=== PATIENT | female | born 1955 | race American Indian/Alaskan Native ===

== ENCOUNTER 2022-02-23 09:05 | Emergency (ER) | payer BC ==
[2022-02-23 09:34] VITALS: BP 131/105
--- NOTE | 2022-02-23 11:42 | Emergency Department Report ---
Minor Respiratory - HPI Chief Complaint: Sore Throat Stated Complaint: THROAT PAIN Time Seen by Provider: 02/23/22 11:19 Duration: 3 Days Pain Location: Throat Severity: mild Minor Respiratory: Yes Sore Throat, Yes Able to Tolerate Fluids, No Rhinorrhea, No Ear Pain, No Cough, No Sick Contacts, No Hemoptysis, No Chest Pain, No Shortness of Breath, No Fever Other History: 66 YO COMES TO ER WITH SORE THROAT AND SINUS PRESSURE. POS POST NASAL DRIP. NO FEVER. NO COUGH. NON TOXIC ON EXAM ED Review of Systems ROS: Stated complaint: THROAT PAIN Other details as noted in HPI Comment: All other systems reviewed and negative ED Past Medical Hx - Past Medical History Previous Medical History?: Yes Hx Asthma: Yes - Surgical History Past Surgical History?: Yes - Family History Family history: no significant - Social History Smoking Status: Never Smoker Substance Use Type: None - Medications Home Medications: Home Medications Medication Instructions Recorded Confirmed Last Taken Type Azithromycin [Zithromax Z-BLAKE] 250 mg PO DAILY #6 tablet 02/23/22 Unknown Rx Cetirizine HCl [ZyrTEC] 10 mg PO DAILY #30 capsule 02/23/22 Unknown Rx Fluticasone [Flonase] 1 spray NS QDAY #1 bottle 02/23/22 Unknown Rx predniSONE [Deltasone] 20 mg PO DAILY #5 tablet 02/23/22 Unknown Rx Minor Respiratory Exam - Exam General: Vital signs noted. No distress. Alert and acting appropriately. HEENT: Yes Pharyngeal Erythema, Yes Moist Mucous Membranes, Yes Frontal Tenderness, Yes Maxillary Tenderness, No Pharyngeal Exudates, No Rhinorrhea, No Conjuctival Injection Ear: Neither TM Bulge, Neither TM Erythema, Neither EAC Pain, Neither EAC Discharge Neck: Yes Supple, No Adenopathy Lungs: Yes Good Air Exchange, No Wheezes, No Ronchi, No Stridor, No Cough, No Labored Respirations, No Retractions, No Use of Accessory Muscles, No Other Abnormal Lung Sounds Heart: Yes Regular, No Murmur Abdomen: Yes Normal Bowel Sounds, No Tenderness, No Peritoneal Signs Skin: No Rash, No Edema Neurologic: Alert and oriented, no deficits. Musculoskeletal: Unremarkable. ED Course Vital Signs 02/23/22 09:31 Temperature 99.1 F Pulse Rate 86 Respiratory 16 Rate Blood Pressure 131/105 [Right] O2 Sat by Pulse 96 Oximetry ED Medical Decision Making - Medical Decision Making Vital Signs 02/23/22 09:31 Temperature 99.1 F Pulse Rate 86 Respiratory 16 Rate Blood Pressure 131/105 [Right] O2 Sat by Pulse 96 Oximetry BP NOTED TO BE INC PT INSTRUCTED TO MONITOR SHE HAS BEEN TAKING OTC DECONGESTANTS NO CP NO SOB TAKING PO NON ILL APPEARING DC HOME WITH DC PLAN OF CARE INCLUDING DIET, MEDS, ACTIVITY AND FOLLOW UP. SHE VERBALIZES UNDERSTANDING OF PLAN OF CARE. SHE WILL MONITOR HER BP Vital Signs 02/23/22 09:31 Temperature 99.1 F Pulse Rate 86 Respiratory 16 Rate Blood Pressure 131/105 [Right] O2 Sat by Pulse 96 Oximetry - Differential Diagnosis SIMPLE URI Critical care attestation.: If time is entered above; I have spent that time in minutes in the direct care of this critically ill patient, excluding procedure time. ED Disposition Clinical Impression: Uvulitis, Sinusitis, Elevated blood pressure reading Disposition: 01 HOME / SELF CARE / HOMELESS Is pt being admited?: No Does the pt Need Aspirin: No Condition: Stable Instructions: Sinusitis, Adult, [id number] Additional Instructions: MEDS ORDERED TODAY FOLLOW UP WITH PCP IN 48 HOURS REFERRAL BELOW MOTRIN OR TYLENOL FOR PAIN DIET TOLERATED MONITOR YOUR BP IT WAS ELEVATED TODAY DIET AND ACTIVITY TOLERATED Prescriptions: predniSONE [Deltasone] 20 mg PO DAILY #5 tablet Fluticasone [Flonase] 1 spray NS QDAY #1 bottle Azithromycin [Zithromax Z-BLAKE] 250 mg PO DAILY #6 tablet Cetirizine HCl [ZyrTEC] 10 mg PO DAILY #30 capsule Referrals: CHARIS LANGLEY MD [Staff Physician] - 3-5 Days Forms: Work/School Release Form(ED) Time of Disposition: 11:39
== END 2022-02-23 12:40 | disposition home or self-care (01) ==
LOC: ED 09:05
DX: K12.2 Cellulitis and abscess of mouth (principal); J32.9 Chronic sinusitis, unspecified; R03.0 Elevated blood-pressure reading, without diagnosis of hypertension; J45.909 Unspecified asthma, uncomplicated; Z79.899 Other long term (current) drug therapy
CPT/HCPCS: 99282

== ENCOUNTER 2022-02-25 07:17 | Outpatient (CLI) | payer BC ==
[2022-02-25 08:51] LABS: ABG Base Excess 1.1 mmol/L (-2.0-3.0); ABG HCO3 25.8 mmol/L (20.0-26.0); ABG Methemoglobin 0.4 % (0.0-1.5); ABG PCO2 41.6 mm Hg; ABG PH 7.411 pH Units (7.350-7.450); ABG PO2 86.2 mm Hg (80.0-90.0)
--- NOTE | 2022-02-25 11:04 | Fluoroscopy Report ---
UPPER GI HISTORY: K21.9 Gastro-esophageal reflux disease. TECHNIQUE: Single and double contrast barium technique utilized to evaluate the esophagus, stomach, and duodenal C-loop. FINDINGS: To begin the exam, swallowing was evaluated in the lateral position under direct fluorosco py. Swallowing was normal. No mucosal irregularity, mass, mass effect, or critical stenosis. There were no abnormal tertiary c ontractions as seen with dysmotility. No gastroesophageal reflux. No hiatal hernia. IMPRESSION: Unremarkable exam. Fluoroscopic time: 2.7 minutes Number of fluoroscopic images: 22 Signer Name: Silvio Welch Jr, MD Signed: 02/25/2022 11:00 AM Workstation Name: [id number]
== END 2022-02-25 07:18 | disposition home or self-care (01) ==
LOC: FLUORO 07:17
PROVIDERS: ATTEND Internal Medicine
DX: K21.9 Gastro-esophageal reflux disease without esophagitis (principal); J45.909 Unspecified asthma, uncomplicated
CPT/HCPCS: 36415; 36600; 74246; 82785; 82803